=== PATIENT | male | born 1985 | race Caucasian/White ===

== ENCOUNTER 2018-05-16 09:22 | Emergency (ER) | payer SELFPAY ==
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
== END 2018-05-16 09:50 | disposition home or self-care (01) ==
LOC: JD.ED 09:22
DX: K08.89 Other specified disorders of teeth and supporting structures (principal); Z76.5 Malingerer [conscious simulation]; Z88.1 Allergy status to other antibiotic agents; F17.210 Nicotine dependence, cigarettes, uncomplicated
CPT/HCPCS: 99283

== ENCOUNTER 2018-05-17 12:17 | Emergency (ER) | payer SELFPAY ==
--- NOTE | 2018-05-17 12:37 | EDM.PDOC ---
ED HPI GENERAL MEDICAL PROBLEM - General Chief Complaint: ENT Problem Stated Complaint: DENTAL COMPLAINT Time Seen by Provider: 05/17/18 12:32 Source of Information: Reports: Patient History Limitations: Reports: No Limitations - History of Present Illness INITIAL COMMENTS - FREE TEXT/NARRATIVE: 32-year-old male presents the ED with dental pain left upper molar. Patient has no facial swelling. He states the pain is rating to the side of his nose up into the maxillary sinus distribution and towards his left ear. He has not had any drainage from the tooth. Pain is constant and throbbing and kept him awake most of the night. He feels it is worse than it was yesterday. Onset: Gradual Onset Date: 05/15/18 Duration: Day(s): Location: Reports: Face (Left upper molar.) Quality: Reports: Ache, Pressure, Throbbing Severity: Moderate Worsens with: Reports: None Context: Denies: Activity, Exercise, Lifting, Sick Contact, Trauma, Other Associated Symptoms: Reports: Malaise (From not sleeping all night.). 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 (Been taking large quantities of Motrin.) Left Upper Tooth/Teeth Pain Score (Numeric/FACES): 6 - Related Data Allergies Allergy/AdvReac Type Severity Reaction Status Date / Time clindamycin Allergy Nausea and Verified 05/16/18 09:31 Vomiting Home Meds: Home Meds Amoxicillin [Amoxil] 500 mg PO Q12HR #20 tab 05/17/18 [Rx] oxyCODONE HCl/Acetaminophen [Percocet 5-325 mg Tablet] 1 - 2 each PO Q4H PRN # 16 tablet 05/17/18 [Rx] Past Medical History - Past Health History Medical/Surgical History: Denies Medical/Surgical History Other HEENT History: dental pain - Past Surgical History HEENT Surgical History: Reports: Oral Surgery GI Surgical History: Reports: Appendectomy Social & Family History - Family History Family Medical History: Noncontributory - Tobacco Use Smoking Status *Q: Current Every Day Smoker Years of Tobacco use: 16 Packs/Tins Daily: 0.5 - Caffeine Use Caffeine Use: Reports: Coffee - Recreational Drug Use Recreational Drug Use: No - Living Situation & Occupation Living situation: Reports: Single, Other (Worker housing) Occupation: Employed ([employer]) ED ROS ENT - Review of Systems Review Of Systems: See Below Constitutional: Reports: Fatigue, Decreased Appetite (From not sleeping all night). Denies: Fever, Chills, Malaise, Weakness HEENT: Reports: Dental Pain (Left upper molar. He is rating up into the left maxillary sinus side of his nose and into his left ear area.) Respiratory: Reports: No Symptoms Cardiovascular: Reports: No Symptoms Endocrine: Reports: No Symptoms GI/Abdominal: Reports: No Symptoms : Reports: No Symptoms Musculoskeletal: Reports: No Symptoms Skin: Reports: No Symptoms Neurological: Reports: No Symptoms Psychiatric: Reports: No Symptoms Hematologic/Lymphatic: Reports: No Symptoms ED EXAM, ENT - Physical Exam Exam: See Below Exam Limited By: No Limitations General Appearance: Alert, WD/WN, No Apparent Distress Eye Exam: Bilateral Eye: Normal Inspection Ears: TM Obscured by Cerumen (Left tympanic membrane is totally obscured by cerumen from Q-tip use. Advise patient to use cooking well into his ear 2-3 drops twice weekly and then allow shower water to penetrate the area to disimpact the cerumen plug.) Mouth/Throat: Dental Pain, Dental Tenderness (Dental pain on palpation of the first molar tooth left upper on tongue blade exam. No gingiva all abscess evident. Left upper first molar tooth.), Other (He appears to have a left lower third molar that is totally decayed down to the gingiva margin. States it doesn' t hurt however.) Head: Atraumatic ( There is no localized swelling at this area either.), Normocephalic, Other. No: Facial Abrasions, Facial Ecchymosis, Facial Lacerations, Facial Swelling Neck: Normal Inspection, Supple (No evidence of facial cellulitis.), Non-Tender , Full Range of Motion. No: Lymphadenopathy (L), Lymphadenopathy (R) Course - Vital Signs Last Recorded V/S: Last Vital Signs Temp 36.7 C 05/17/18 12:23 Pulse 80 05/17/18 12:23 Resp 20 05/17/18 12:23 BP 123/84 05/17/18 12:23 Pulse Ox 98 05/17/18 12:23 - Radiology Interpretation Free Text/Narrative:: 32-year-old male presents the ED with dental pain left upper molar tooth for 3 days. Gradually worsening over the last 12-24 hours. Pain is constant throbbing and kept him awake most of last night. Examination reveals no obvious dental abscess. However palpation of the first molar tooth by tongue blade caused him exquisite pain. Suspect root infection. Plan amoxicillin 500 mg 2 times a day for the next 10 days. Continue Motrin 600 mg every 6 hours for pain relief. Percocet tabs 03/19/25 one or 2 every 4-6 hours needed for pain relief 16 tablets provided. It's unlikely that he will build to follow-up with dentist in the near future due to financial constrictions. Departure - Departure Time of Disposition: 12:34 Disposition: Home, Self-Care 01 Condition: Fair Clinical Impression: Dental abscess - Discharge Information Prescriptions: Amoxicillin [Amoxil] 500 mg PO Q12HR #20 tab oxyCODONE HCl/Acetaminophen [Percocet 5-325 mg Tablet] 1 - 2 each PO Q4H PRN # 16 tablet PRN Reason: pain relief. Referrals: PCP,None [Primary Care Provider] - Forms: ED Department Discharge
== END 2018-05-17 12:46 | disposition home or self-care (01) ==
LOC: JD.ED 12:17
DX: K04.7 Periapical abscess without sinus (principal); F17.210 Nicotine dependence, cigarettes, uncomplicated; Z88.1 Allergy status to other antibiotic agents
CPT/HCPCS: 99282

== ENCOUNTER 2018-08-21 10:05 | Emergency (ER) | payer SELFPAY ==
[2018-08-21] MEDS ORDERED: Orphenadrine 100 MG Tab.ER PO ONE (10:56)
[2018-08-21] MEDS ORDERED: Ketorolac 30 MG/ML SDV IM ONE (10:56)
--- NOTE | 2018-08-21 11:03 | EDM.PDOC ---
ED HPI GENERAL MEDICAL PROBLEM - General Chief Complaint: Back Pain or Injury Stated Complaint: BACK PAIN Time Seen by Provider: 08/21/18 10:44 - History of Present Illness INITIAL COMMENTS - FREE TEXT/NARRATIVE: This is a 32-year-old male, who presented today to the emergency department for evaluation of low back pain approximately 2 days ago. He stated that while he was at work, he was caring something heavy in his both hands, he slipped and fell onto his back to the stairs and injured his back. 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 He was able to ambulate and moving all 4 of his extremities voluntarily without any significant amount of pain, numbness or weakness after the fall. Currently he is complaining of low back pain which he rated about 8 on a scale of 0-10. No alleviating factors contributing to his pain while pain is somewhat aggravated by sitting position. He has been using [id number] pain medication, despite using medications and his pain remains the same. He denies any fever, neck pain, headache, nausea, chest pain or shortness of breath, numbness, weakness, saddle anesthesia, loss of bladder or bowel control. He denies any previous injury or trauma to his back or neck. Denies any other concerns at this time. Lower Back Pain Score (Numeric/FACES): 8 - Related Data Allergies Allergy/AdvReac Type Severity Reaction Status Date / Time clindamycin Allergy Nausea and Verified 08/21/18 10:21 Vomiting Home Meds: Home Meds Cyclobenzaprine [Flexeril] 10 mg PO TID PRN #30 tab 08/21/18 [Rx] Ketorolac [Toradol] 10 mg PO Q8H PRN #30 tab 08/21/18 [Rx] Past Medical History - Past Health History Medical/Surgical History: Denies Medical/Surgical History Other HEENT History: dental pain - Past Surgical History HEENT Surgical History: Reports: Oral Surgery GI Surgical History: Reports: Appendectomy Social & Family History - Family History Family Medical History: Noncontributory - Tobacco Use Smoking Status *Q: Current Every Day Smoker Years of Tobacco use: 15 Packs/Tins Daily: 0.5 - Caffeine Use Caffeine Use: Reports: Coffee - Recreational Drug Use Recreational Drug Use: No - Living Situation & Occupation Living situation: Reports: Single, Other (Worker housing) Occupation: Employed ([employer]) ED ROS GENERAL - Review of Systems Review Of Systems: ROS reveals no pertinent complaints other than HPI. ED EXAM,LOWER BACK PAIN/INJURY - Physical Exam Exam: See Below Exam Limited By: No Limitations General Appearance: Alert, WD/WN, No Apparent Distress Head: Atraumatic, Normocephalic Neck: Normal Inspection, Supple, Non-Tender, Full Range of Motion Respiratory/Chest: No Respiratory Distress, Lungs Clear, Normal Breath Sounds Cardiovascular: Normal Peripheral Pulses, Regular Rate, Rhythm GI/Abdominal: Normal Bowel Sounds, Soft, Non-Tender. No: No Mass Back Exam: Other (Patient is able to ambulate without assistance. Patient is seated on the chair in no obvious distress. There is no surface trauma. No STS or muscle tenderness to palpation. There is a diffuse muscle spasm palpated over the thoracic and lumbar paraspinal muscles. There is no step-off, mass, point tenderness or deformity of the bony cervical, thoracic or lumbar sacral spine. No CVA tenderness to percussion. No SI notch tenderness. No saddle anesthesia. Heel and toe walking with good strength. Dorsi and plantarflexion with adequate strength. Negative straight leg raises bilaterally for radiculopathy. Good dorsalis pedal pulses and posterior tibial pulses palpated. Patellar reflexes equal and brisk bilaterally. Sensation to light touch is intact at the great toe webspace bilaterally.) Extremities: Normal Inspection, Normal Range of Motion, Normal Capillary Refill Neurological: Alert, Normal Mood/Affect, No Motor/Sensory Deficits Psychiatric: Normal Affect, Normal Mood Skin Exam: Warm, Dry, Intact, Normal Color, No Rash Course - Vital Signs Last Recorded V/S: Last Vital Signs Temp 36.9 C 08/21/18 10:20 Pulse 84 08/21/18 10:20 Resp 18 08/21/18 10:20 BP 124/87 08/21/18 10:20 Pulse Ox 97 08/21/18 10:20 - Orders/Labs/Meds Orders: Active Orders 24 hr Category Date Time Status Lumbar Spine Min 4V [CR] Stat Exams 08/21/18 10:56 Taken Thoracic Spine 2V [CR] Stat Exams 08/21/18 10:56 Taken Meds: Medications Discontinued Medications Generic Name Dose Route Start Last Admin Trade Name Freq PRN Reason Stop Dose Admin Ketorolac Tromethamine 30 mg 08/21/18 10:56 08/21/18 11:02 Toradol IM 08/21/18 10:57 30 mg ONETIME ONE Administration Orphenadrine Citrate 100 mg 08/21/18 10:56 08/21/18 11:02 Norflex PO 08/21/18 10:57 100 mg ONETIME ONE Administration - Re-Assessments/Exams Free Text/Narrative Re-Assessment/Exam: 08/21/18 11:50 At this time, patient reevaluated admission. Patient did feel minimal relief from medication that were provided in the emergency department. However he denies any other concern at this time. I expect inpatient that this is a work-related injury he needs to be seen by primary care provider within 3-5 days to reevaluate his symptoms of today emergency visit. Patient with low back pain. No specific injury. No neurological complaints. No saddle anesthesia. No bowel or bladder incontinence. No midline tenderness of the spine. BLE neurologically intact. No CVA tenderness. No urinary symptoms. Doubt any acute spinal cord compression syndrome. Manage his symptoms supportively at this time. Answers S steroid and muscle relaxant given in the emergency department. Prescription for both provided for the patient. Follow with PCP in 3-5 days if pain is not improving. Strong return precautions given for worsening symptoms or any other alarming symptoms or issues such as worsening of the pain, fever, weakness, paresthesia, incontinence, syncope or fainting. At the time of discharge, patient was alert and oriented 3, was in no acute distress. Ambulated on his own without any difficulty or pain Departure - Departure Time of Disposition: 11:54 Disposition: Home, Self-Care 01 Condition: Good Clinical Impression: Back muscle spasm Acute lumbar back pain Qualifiers: Back pain laterality: bilateral Sciatica presence: without sciatica Qualified Code(s): M54.5 - Low back pain - Discharge Information Prescriptions: Cyclobenzaprine [Flexeril] 10 mg PO TID PRN #30 tab PRN Reason: Muscle Spasm Ketorolac [Toradol] 10 mg PO Q8H PRN #30 tab PRN Reason: Pain (Moderate 4-6) Instructions: Back Pain, Adult, [id number], Back Injury Prevention Referrals: PCP,None [Primary Care Provider] - 3 Days (Please establish primary care provider as soon as possible. Follow-up with your PCP within 3-5 days if pain is not improving.) Forms: ED Department Discharge, ED Return to Work/School Form Additional Instructions: Patient has been advised to be as active as possible but instructed to avoid pain causing activities and having lifting, stooping, bending or twisting. He further instructed to use ice pack to the injury site multiple times a day as tolerated to alleviate pain and discomfort. Further advised to take back injury precaution. He verbalized understanding of the given instruction and agrees to comply - My Orders Last 24 Hours: My Active Orders 08/21/18 10:56 Lumbar Spine Min 4V [CR] Stat Thoracic Spine 2V [CR] Stat - Assessment/Plan Last 24 Hours: My Active Orders 08/21/18 10:56 Lumbar Spine Min 4V [CR] Stat Thoracic Spine 2V [CR] Stat
--- NOTE | 2018-08-21 14:10 | CR ---
Thoracic spine: AP, lateral and swimmer's views of the thoracic spine were obtained. Comparison: No previous study. Mild scoliosis is seen. Bladder body heights are maintained. Pedicles are intact. No subluxation or fracture is seen. Impression: 1. Mild scoliosis. Three-view thoracic spine study is otherwise unremarkable. Diagnostic code #2
--- NOTE | 2018-08-21 15:05 | CR ---
Lumbar spine: AP, oblique and lateral view of the lumbar spine was obtained. Comparison: No previous study. Vertebral body heights and disc spaces are maintained. No spondylolisthesis or spondylolysis is seen. Pedicles as well as transverse and spinous processes are intact. No subluxation or fracture is seen. Impression: 1. Unremarkable four-view lumbar spine exam. Diagnostic code #1
== END 2018-08-21 12:10 | disposition home or self-care (01) ==
LOC: JD.ED 10:05
DX: M62.838 Other muscle spasm (principal); M54.5 Low back pain; F17.210 Nicotine dependence, cigarettes, uncomplicated; Z88.1 Allergy status to other antibiotic agents
CPT/HCPCS: 72070; 72110; 96372; 99283; A9270; J1885